=== PATIENT | female | born 1945 | race Caucasian/White ===

== ENCOUNTER → 2018-07-02 11:32 | Outpatient (CLI) | payer MEDICARE, SELFPAY ==
[2018-07-02 12:05] LABS: Add Manual Diff / Slide Review NO; Basophils Percent Auto 0.8 % (0-2); Eosinophils Percent Auto 7.6 % (2-4); Hematocrit 39.7 % (36-46); Hemoglobin 13.7 g/dL (12.0-16.0); Mean Corpuscular HGB Conc 34.5 % (30-36); Mean Corpuscular Hemoglobin 33.9 PG (26-34); Mean Corpuscular Volume 98.4 fL (80-100); Neutrophils Absolute Auto 2500 /uL (3000-5900); Neutrophils Percent Auto 52.6 % (50-75); Platelet Count 242 X10^3/uL (150-400); Red Blood Cell Count 4.04 X10^6/uL (4.0-5.2); Red Cell Distribution Width 12.8 % (11.6-14.8); White Blood Cell Count 4.7 X10^3/uL (4.5-11.0)
[2018-07-02 12:46] LABS: Alanine Aminotransferase 34 IU/L (9-52); Albumin 4.1 g/dL (3.5-5.0); Alkaline Phosphatase 87 U/L (38-126); Aspartate Aminotransferase 29 IU/L (14-36); BUN Creatinine Ratio 18.6 (6-22); Bilirubin Total 0.3 mg/dL (0.2-1.3); Blood Urea Nitrogen 13 mg/dL (7-17); Calcium 9.1 mg/dL (8.4-10.2); Carbon Dioxide 34 mmol/L (22-32); Chloride 95 mmol/L (98-107); Estimated Glomerular Filt Rate > 60.0 mL/min (>60); Globulin 2.1 g/dL (1.7-4.1); Glucose 96 mg/dL (80-110); HEMOLYSIS < 15 (0-50); Potassium 5.1 mmol/L (3.4-5.1); Sodium 135 mmol/L (137-145); Total Protein 6.2 g/dL (6.3-8.2)
== END ==
PROVIDERS: Family Provider Internal Medicine; PCP Internal Medicine; Visit Provider Internal Medicine
DX: G50.0 Trigeminal neuralgia (principal); I10 Essential (primary) hypertension
CPT/HCPCS: 36415; 80053; 85025

== ENCOUNTER → 2018-09-09 10:52 | Outpatient (CLI) | payer MEDICARE, SELFPAY ==
--- NOTE | 2018-09-09 | DI.MG.S_ITS ---
BILATERAL DIGITAL SCREENING MAMMOGRAM 3D/2D WITH CAD: 09/09/2018 CLINICAL: Routine screening. Family history of breast cancer. Comparison is made to exams dated: 07/24/2017 mammogram, 07/08/2016 mammogram, and 06/25/2015 mammogram - [facility]. There are scattered fibroglandular elements in both breasts. Current study was also evaluated with a Computer Aided Detection (CAD) system. There are benign calcifications in the left breast. No significant masses, calcifications, or other findings are seen in either breast. There has been no significant interval change. IMPRESSION: There is no mammographic evidence of malignancy. A 1 year screening mammogram is recommended. This exam was interpreted at Station ID: [id number]. NOTE: For mammograms, a report in lay terms will be sent to the patient. Approximately 15% of breast malignancies will not be visualized mammographically. In the management of a palpable breast mass, a negative mammogram must not discourage biopsy of a clinically suspicious lesion. Electronically Signed By: Renetta sánchez/chris:09/09/2018 11:33:02 copy to: Geoff Cotton letter sent: Normal Exam ACR BI-RADS Category 2: Benign Finding(s) 3342F
== END ==
PROVIDERS: PCP Internal Medicine; Visit Provider Obstetrics & Gynecology
DX: Z12.31 Encounter for screening mammogram for malignant neoplasm of breast (principal); Z80.3 Family history of malignant neoplasm of breast
CPT/HCPCS: 77063; 77067

== ENCOUNTER → 2018-12-31 11:29 | Outpatient (CLI) | payer MEDICARE, SELFPAY ==
[2018-12-31 11:50] LABS: Add Manual Diff / Slide Review NO; Basophils Absolute Auto 0 /uL (0-100); Basophils Percent Auto 0.6 % (0-2); Eosinophils Absolute Auto 200 /uL (0-450); Eosinophils Percent Auto 4.8 % (2-4); Hematocrit 39.6 % (36-46); Hemoglobin 13.5 g/dL (12.0-16.0); Lymphocytes Absolute Auto 1200 /uL (1100-4500); Lymphocytes Percent Auto 28.2 % (25-40); Mean Corpuscular Hemoglobin 33.8 PG (26-34); Mean Corpuscular Volume 99.2 fL (80-100); Monocytes Absolute Auto 400 /uL (0-900); Monocytes Percent Auto 10.2 % (3-14); Neutrophils Absolute Auto 2400 /uL (1500-7000); Neutrophils Percent Auto 56.2 % (50-75); Platelet Count 269 X10^3/uL (150-400); Red Blood Cell Count 3.99 X10^6/uL (4.0-5.2); Red Cell Distribution Width 13.4 % (11.6-14.8); White Blood Cell Count 4.3 X10^3/uL (4.5-11.0)
[2018-12-31 12:04] LABS: Alanine Aminotransferase 31 IU/L (9-52); Albumin 4.2 g/dL (3.5-5.0); Albumin Globulin Ratio 1.9 (1.0-2.8); Alkaline Phosphatase 74 U/L (38-126); Aspartate Aminotransferase 23 IU/L (14-36); BUN Creatinine Ratio 22.9 (6-22); Bilirubin Total 0.3 mg/dL (0.2-1.3); Blood Urea Nitrogen 16 mg/dL (7-17); Calcium 8.8 mg/dL (8.4-10.2); Carbon Dioxide 30 mmol/L (22-32); Chloride 95 mmol/L (98-107); Estimated Glomerular Filt Rate > 60.0 mL/min (>60); Globulin 2.2 g/dL (1.7-4.1); Glucose 100 mg/dL (80-110); HEMOLYSIS < 15 (0-50); Potassium 4.7 mmol/L (3.4-5.1); Sodium 134 mmol/L (137-145); Total Protein 6.4 g/dL (6.3-8.2)
== END ==
PROVIDERS: PCP Internal Medicine; Visit Provider Internal Medicine
DX: I10 Essential (primary) hypertension (principal); M85.80 Other specified disorders of bone density and structure, unspecified site
CPT/HCPCS: 36415; 80053; 85025

== ENCOUNTER → 2019-07-28 10:45 | Outpatient (CLI) | payer MEDICARE, SELFPAY ==
--- NOTE | 2019-08-22 10:22 | P.HOLT.S_ITS ---
[employer] L[employer] Report Referral & Results Date Patient Seen: 07/28/19 Requesting provider: Geoff Cotton Indication: Syncope Duration of monitoring (days): 14 Diary information: There are no patient diary entries or triggered events Data: Minimum heart rate identified was 52 beats per minute at 06:39 on 07/31/2019 Maximum sinus heart rate was 113 beats per minute at 17:03 on 08/03/2019 Maximum overall heart rate was 182 beats per minute at 14:49 on 08/03/2019 during a 6 beat run of a narrow complex tachycardia Less than 1% of identified beats or either ventricular or supraventricular ectopic in origin Patient had 23 runs of narrow complex tachycardia 20 of which appeared to be more classic SVT/atrial tachycardia longest of which was 15 beats. The other does not appear entirely consistent with ventricular tachycardia but some other narrow complex tachycardia Impression: Dysrhythmias as above. No clear etiology for syncope identified on this study, in my opinion
== END ==
PROVIDERS: PCP Internal Medicine; Visit Provider Internal Medicine
DX: R55 Syncope and collapse (principal)
CPT/HCPCS: 0296T; 0298T

== ENCOUNTER → 2019-09-01 09:38 | Outpatient (CLI) | payer MEDICARE, SELFPAY ==
--- NOTE | 2019-09-01 09:43 | DI.US.S_ITS ---
PROCEDURE: US CAROTID DOPPLER BI INDICATIONS: SYNCOPE TECHNIQUE: Color and pulse Doppler interrogation was performed of both carotid systems, with image documentation and velocity measurements. COMPARISON: None. FINDINGS: Stenosis calculations are based on SRU (Society of Radiologists in Ultrasound) criteria. Right side: Brachial blood pressure: 146/71 mm Hg. Common carotid artery peak systolic velocity: 74 cm/sec. Internal carotid artery peak systolic velocity: 83 cm/sec. Internal carotid artery end diastolic velocity: 24 cm/sec. External carotid artery peak systolic velocity: 70 cm/sec. ICA/CCA peak systolic ratio: 1.1. Segal scale imaging description: No significant plaque Percent internal carotid artery stenosis: Less than 50% stenosis. Vertebral artery: Flow direction is antegrade. Left side: Brachial blood pressure: 140/75 mm Hg. Common carotid artery peak systolic velocity: 85 cm/sec. Internal carotid artery peak systolic velocity: 78 cm/sec. Internal carotid artery end diastolic velocity: 22 cm/sec. External carotid artery peak systolic velocity: 61 cm/sec. ICA/CCA peak systolic ratio: 0.9. Segal scale imaging description: No significant plaque Percent internal carotid artery stenosis: Less than 50% stenosis. Vertebral artery: Flow direction is antegrade. IMPRESSION: Less than 50% stenosis in the bilateral ICAs. Dictated by: Gustavo Rojas M.D. on 09/01/2019 at 11:37 Approved by: Gustavo Rojas M.D. on 09/01/2019 at 11:45
== END ==
PROVIDERS: PCP Internal Medicine; Visit Provider Internal Medicine
DX: I65.23 Occlusion and stenosis of bilateral carotid arteries (principal); R55 Syncope and collapse
CPT/HCPCS: 93880

== ENCOUNTER → 2019-11-03 13:43 | Outpatient (CLI) | payer MEDICARE, SELFPAY ==
--- NOTE | 2019-11-03 13:45 | DI.ECHO.S_ITS ---
[facility] +---------+ : : [address] [place] : : : : [id number] : : : : Phone: [phone]+ Echocardiogram Report + + :Name: DAYA CARROLL Study Date: 11/03/2019 Height: 66 in : :[facility] Weight: 171 lb : : Gender: Female BSA: 1.9 m2 : :: 1945 Age: 74 yrs BP: 142/96 mmHg: :Reason For Study: Syncope : : Performed By: [facility] Staff : :Referring: ADA MAHMOOD R : + + Interpretation Summary Technically difficult study. The left ventricle is grossly normal size. The left ventricular ejection fraction is normal. There are no obvious focal wall motion abnormalities noted but poor endocardial definition reduces the sensitivity for the detection of such. The right ventricle is normal in size and function. The right ventricular systolic pressure is estimated to be at least 27 mmHg based on an estimated right atrial pressure of 3 mm Hg. The left atrium is moderately dilated. The etiology for syncope could not be determined based on this study. No prior echo for comparison. Procedure: A two-dimensional transthoracic echocardiogram with color flow and Doppler was performed. The study quality was technically adequate. There is no prior echocardiogram noted for this patient. The patient was in normal sinus rhythm during the exam. Left Ventricle: There is normal left ventricular wall thickness. The left ventricle is grossly normal size. The ejection fraction is estimated to be 55- 60%. The left ventricular ejection fraction is normal. There are no obvious focal wall motion abnormalities noted but poor endocardial definition reduces the sensitivity for the detection of such. Diastolic function could not be accurately assessed due to contradictory data. Right Ventricle: The right ventricle is normal in size and function. Atria: The left atrium is moderately dilated. The right atrium is mildly dilated. There is no Doppler evidence for an interatrial shunt. Mitral Valve: The mitral valve is normal in structure and function. There is mild mitral regurgitation. Aortic Valve: The aortic valve opens well. The aortic valve is not well visualized. There is trace aortic regurgitation. Tricuspid Valve: The tricuspid valve is normal in structure and function. There is trace tricuspid regurgitation. The right ventricular systolic pressure is estimated to be at least 27 mmHg based on an estimated right atrial pressure of 3 mm Hg. Pulmonic Valve: The pulmonic valve is not well visualized. There is trace pulmonic regurgitation. Great Vessels: The aortic root is normal size. The ascending aorta is at the upper limits of normal in size. The pulmonary artery is normal size. The IVC is of normal diameter and collapses greater than 50% with a sniff. This suggests a low right atrial pressure of 3 mm Hg. Pericardium/ Pleura There is no pericardial effusion. There is no pleural effusion. MMode/2D Measurements & Calculations LVIDd: 4.7 cm LVOT diam: 2.0 cm LVIDs: 3.5 cm Ao root diam: 3.2 cm FS: 24.6 % Aortic Jxn: 3.0 cm IVSd: 1.1 cm asc Aorta Diam: 3.6 cm LVPWd: 0.90 cm LV whitley. diameter/BSA (cm/m^2): 2.5 LV sys. diameter/BSA (cm/m^2): 1.9 LA A2 area: 31.6 cm2 RA long axis: 6.0 cm LA A4 area: 28.7 cm2 RA area: 19.4 cm2 LA length (vol): 6.8 cm RA vol: 53.2 ml LA vol: 112.6 ml RA : 28.4 ml/m2 LA vol index: 60.1 ml/m2 TAPSE: 2.8 cm Doppler Measurements & Calculations Ao V2 max: 130.4 cm/sec LVOT Max Ronaldo: 94.0 cm/sec Ao V2 mean: 95.8 cm/sec LV V1 max P.5 mmHg Ao max P.8 mmHg LV V1 VTI: 23.4 cm Ao mean P.2 mmHg ZOË(I,D): 2.5 cm2 Ao V2 VTI: 29.2 cm ZOË(V,D): 2.2 cm2 sev ratio: 0.80 ZOË indexed to BSA (cm^2/m^2): 1.3 MV E max ronaldo: 76.9 cm/sec TR max ronaldo: 233.0 cm/sec MV A max ronaldo: 76.9 cm/sec TR max P.8 mmHg MV E/A: 1.0 PA V2 max: 72.3 cm/sec Med Peak E' Ronaldo: 7.4 cm/sec PA V2 mean: 47.3 cm/sec E/E' med: 10.5 PA mean P.1 mmHg Lat Peak E' Ronaldo: 9.3 cm/sec PA Accel Time: 0.17 sec E/E' lat: 8.3 E/e' average: 9.4 MV dec time: 0.23 sec SV(LVOT): 72.8 ml Electronically signed by: Aric Umaña M.D. on Reading Physician:11/03/2019 10:45 PM
== END ==
PROVIDERS: PCP Internal Medicine; Visit Provider Internal Medicine
DX: I34.0 Nonrheumatic mitral (valve) insufficiency (principal); R55 Syncope and collapse
CPT/HCPCS: 93306

== ENCOUNTER → 2019-12-29 12:06 | Outpatient (CLI) | payer MEDICARE, SELFPAY ==
--- NOTE | 2019-12-29 | DI.MG.S_ITS ---
BILATERAL DIGITAL SCREENING MAMMOGRAM 3D/2D WITH CAD: 12/29/2019 CLINICAL: Routine screening. Family history of breast cancer. Comparison is made to exams dated: 09/09/2018 mammogram, 07/24/2017 mammogram, and 07/08/2016 mammogram - [facility]. There are scattered fibroglandular elements in both breasts. Current study was also evaluated with a Computer Aided Detection (CAD) system. There is a benign calcification in both breasts. No significant masses, calcifications, or other findings are seen in either breast. There has been no significant interval change. IMPRESSION: There is no mammographic evidence of malignancy. A 1 year screening mammogram is recommended. This exam was interpreted at Station ID: [id number]. NOTE: For mammograms, a report in lay terms will be sent to the patient. Approximately 15% of breast malignancies will not be visualized mammographically. In the management of a palpable breast mass, a negative mammogram must not discourage biopsy of a clinically suspicious lesion. Electronically Signed By: Renetta sánchez/chris:12/30/2019 13:34:36 copy to: Geoff Cotton letter sent: Normal Exam ACR BI-RADS Category 2: Benign Finding(s) 3342F
== END ==
PROVIDERS: PCP Internal Medicine; Referring Provider Obstetrics & Gynecology; Visit Provider Obstetrics & Gynecology
DX: Z12.31 Encounter for screening mammogram for malignant neoplasm of breast (principal); Z80.3 Family history of malignant neoplasm of breast
CPT/HCPCS: 77063; 77067